=== PATIENT | male | born 1950 | race Caucasian/White ===

== ENCOUNTER 2021-12-05 10:40 | Outpatient (REF) | payer OTHER, SELFPAY ==
[2021-12-05 11:00] VITALS: BMI 25.8
[2021-12-05 11:03] VITALS: BP 127/82; PULSE 51; RESP 16; TEMP 36.6; O2SAT 98
== END 2021-12-05 10:41 | disposition home or self-care (01) ==
LOC: HO.MS 10:40
PROVIDERS: PCP Internal Medicine; Visit Provider Surgery
DX: L91.0 Hypertrophic scar (principal); Z53.8 Procedure and treatment not carried out for other reasons

== ENCOUNTER 2022-01-06 12:23 | Outpatient (REF) | payer OTHER, SELFPAY ==
[2022-01-06 12:36] VITALS: BP 127/55; PULSE 47; RESP 16; TEMP 36.6; O2SAT 98
[2022-01-06 12:39] VITALS: BMI 26.3
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
== END 2022-01-06 12:24 | disposition home or self-care (01) ==
LOC: HO.MS 12:23
PROVIDERS: Orthopaedic Surgery; PCP Internal Medicine; Visit Provider Surgery
PROC: (CPT 11602; principal; 2022-01-06 13:00)
DX: C43.59 Malignant melanoma of other part of trunk (principal); L91.0 Hypertrophic scar
CPT/HCPCS: 11602; 12031; 81210; 81272; 88304; 88341; 88342

== ENCOUNTER 2022-01-21 07:07 | Day surgery (SDC) | payer OTHER, SELFPAY ==
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
[2022-01-21] VITALS (7 sets, daily range): BP systolic 139–162; BP diastolic 63–93; PULSE 47–73; RESP 15–18; TEMP 36.1; O2SAT 95–100; BMI 25.9
--- NOTE | ~2022-01-21 | NM_ITS ---
EXAMINATION: NM LYMPH SCINTIGRAPHY CLINICAL INFORMATION: Left chest wall melanoma. COMPARISON: None TECHNIQUE: The patient was injected with 4 aliquots of 0.125 mCi technetium 99 M, labeled lymphoseek around the perimeter of the scar in the left anterior chest wall. Total body imaging at 1 hour was performed. Additional anterior COKER and PERSIAN images of the chest at 76 minutes was also performed. FINDINGS: There is adequate radiotracer activity seen at the scar in the left anterior chest wall. No sentinel node activity is seen. NM/NM sentinel node w imaging IMPRESSION: No sentinel node activity is seen.
[2022-01-21 08:33] LABS: Hematocrit 44.9 % (42.0-52.0); Hemoglobin 15.2 g/dl (14.0-18.0); Mean Corpuscular HGB Conc 33.9 g/dl (31.0-36.0); Mean Corpuscular Volume 91.6 fL (80.0-98.0); Mean Platelet Volume 10.8 fL (9.4-12.4); Platelet Count 226 X10*3/uL (160-400); White Blood Count 7.4 X10*3/uL (4.8-10.8)
[2022-01-21] MEDS: Lactated Ringers 1,000 ML 100 ML IVCONT (08:38)
[2022-01-21 08:40] LABS: Anion Gap 15 (12-20); Blood Urea Nitrogen 13 mg/dL (9-16); Carbon Dioxide 27 mmol/L (22-29); Chloride 103 mmol/L (96-108); Creatinine Clr Calc Pharmacy 85.2; Estimated Glomerular Filt Rate > 60; Glucose Fasting 97 mg/dL (60-99); Potassium 4.2 mmol/L (3.3-5.1); Sodium 141 mmol/L (135-145)
--- NOTE | 2022-01-21 08:52 | PC.NURSE ---
pt to radiology via stretcher off monitor, iv infusion of LR stopped/flushed site.
--- NOTE | 2022-01-21 12:53 | PC.NURSE ---
per dr. little upon signing consent, surgical clip to be done in OR
--- NOTE | 2022-01-21 14:23 | P.OP_ITS ---
Operative Note Operative Note Date of Service: 01/21/22 Narrative: Preoperative diagnosis: Malignant melanoma left chest Postoperative diagnosis: same Procedure: wide excision malignant melanoma left chest, left axillary sentinel node biopsy Surgeon: César Dinh MD Boulevard Glassware Replacer: Lo Peace PA-C, FAVIAN Breaux Anesthesia: general LMA Indications for procedure: 71-year-old male patient with a long history of bleeding skin lesion located over the left chest which is gradually increased in size. Patient previously underwent an excision of this lesion which proved to be a 5 mm deep invasive malignant melanoma with negative margins. Patient presents today for wide excision to achieve 2 cm margins. Operative findings: previous excision site with intact sutures with skin irritation in the surrounding skin Specimen: malignant melanoma left chest Estimated blood loss: 20 mL Complications: non Procedure details: patient was brought to the OR placed in a supine position. After administering general anesthesia the patient's left chest and axilla were prepped with Betadine and draped in a sterile fashion. A surgical time-out was called the consent confirmed. Patient received preoperative antibiotics and Venodyne boots were in place. Local anesthesia consisting of 0.25% bupivacaine was infiltrated circumferentially around the excision site. An elliptical incision was then created oriented transversely with 2 cm margins from the previous excision site. Then carried out through subcutaneous tissue down to muscle fascia. The lesion was then dissected off the muscle fascia. Specimen was marked with a long suture on the lateral margin and short suture on the superior margin. This was then passed off the table and sent to pathology for further examination. The skin edges were then mobilized over the muscle fascia both superiorly and inferiorly. Ingrid's fascia was then reapproximated using interrupted 3-0 Polysorb sutures. Dermis was then reapproximated using interrupted 3-0 Polysorb sutures. Skin was then closed using interrupted 3-0 nylon sutures. Attention was then directed to the axilla. The gamma probe was used to identify an area of increased a radio activity. A curvilinear incision was made below the hairline in the axilla transversely. This carried out through subcutaneous tissue past clavipectoral fascia. Using the gamma probe as a guide area of increased activity was localized and grasped with an Allis clamp. Enlarged lymph node was noted at that time. This was found to be amelanotic appearance. The node was removed using electrocautery. This was labeled as sentinel node 1 with a count of 66. A 2nd lymph node was then identified with counts of 76 sent as sentinel node 2. No other radio activity was identified at this time. Wounds were then checked for hemostasis. Hemostasis was assured using electrocautery. wounds were then irrigated with saline solution and suctioned dry. The fascia was reapproximated using interrupted 3-0 Polysorb sutures. Dermis was reapproximated using interrupted 3-0 Polysorb sutures. Skin was then closed using a running subcuticular 4-0 Polysorb suture Steri-Strips and Tegaderm were then applied. A Tegaderm dressing was also applied to the chest wound. The patient tolerated the procedure well. Sponge, instrument, and needle counts reported as correct. Patient was transferred as stable condition. Primary Cutaneous Melanoma Original Breslow thickness of the lesion: Invasive (to the tenth of a millimeter) (5.0) Clinical margin from the edge of the lesion or the prior excision scar: 2 cm Depth down to the fascia; if not down to the fascia, then document why: Yes General Surg. - Synoptic Notes Primary Cutaneous Melanoma Original Breslow thickness of the lesion: Invasive (to the tenth of a millimeter) (5.0) Clinical margin from the edge of the lesion or the prior excision scar: 2 cm Depth down to the fascia; if not down to the fascia, then document why: Yes
== END 2022-01-21 15:59 | disposition home or self-care (01) ==
PROVIDERS: Nurse Practitioner; PCP Internal Medicine; Visit Provider Surgery
PROC: (CPT 19120; principal; 2022-01-21 12:40)
PROC: (CPT 11602; 2022-01-21 12:40)
DX: C77.3 Secondary and unspecified malignant neoplasm of axilla and upper limb lymph nodes (principal); C43.59 Malignant melanoma of other part of trunk; Z86.74 Personal history of sudden cardiac arrest; I25.10 Atherosclerotic heart disease of native coronary artery without angina pectoris; Z79.82 Long term (current) use of aspirin; Z79.899 Other long term (current) drug therapy
CPT/HCPCS: 11602; 38525; 12031; 36415; 78195; 80048; 85027; 88305; 88307; 88341; 88342; A9520; J0131; J0461; J0690; J1100; J2250; J2405; J2795; J3010

== ENCOUNTER 2024-11-09 08:01 | Outpatient (AMB) | payer OTHER, SELFPAY ==
--- OUTSIDE RECORDS SUMMARY | 2024-11-09 08:06 | XMS_ITS | Encounter Summary ---
Author Organization [facility] Address [facility] [address] [place] [phone] Phone Care Team Providers Care Geothermal System Installer Name Role Phone Inder Arias MD Primary Care Provid er Christo Taylor MD Unavailable Angel Mondragon MD Unavailable Kayla Stahl MD, PhD Unavailable César Prabhakar MD Unavailable [phone] Encounter Details Date Type Department Care Team (Late st Contact Info) Description 11/24/2023 Procedure Pass [address] [place] [address] Social History Tobacco Use Types Packs/Day Years Used Date Smoking Tobacco: Never Passive Smoke Exposure: Past Smokeless Tobacco: Never Alcohol Use Standard Drinks/Week Comments Not Asked 0 (1 standard drink = 0.6 oz pur e alcohol) 1 per month Education Answer Date Recorded Are you interested in more education? Not on kalen e 07/20/2023 Are you concerned about learning? Not on file 07/20/2023 No 07/20/2023 No 07/20/2023 Digital Access Answer Date Recorded No 07/20/2023 No 07/20/2023 Reliable internet access at home? Not on file 07/20/2023 Device with a working camera? Not on file Intimate Partner Violence Answer Date R ecorded Are you denied basic needs s uch as food, clothing, or medical care? No 11/02/2023 In the past 12 months have y ou been in a relationship with a person who hurts, threatens, or tries to control you? No 11/02/2023 Are you denied basic needs s uch as food, clothing, or medical care? No 11/02/2023 In the past 12 months have y ou been in a relationship with a person who hurts, threatens, or tries to control you? No 11/02/2023 Sex and Gender Information Value Date Recorded Sex Assigned at Male 07/20/2023 11:37 AM EDT Legal Sex Male 11:35 AM EDT Gender Identity Male 07/20/2023 11:37 AM EDT Sexual Orientation Straight 07/20/2023 11 :37 AM EDT documented as of this encounter Plan of Treatment Not on file documented as of this encounter Goals Goal Patient Goal Type Associated Problems Recent Progress Patient-Stated? Author Acute Care Plan Acute Care Plan No Nanda Combs RN Note: Immune Effector Cell patient/ Tumor Infiltrating Leukocyte (TIL) patient. Patient received TIL product Lifileucel on 11/08/23 Page the on-call Immune Effector Cell Attending via [email or web address] Page immediately if patient presents within the first 30 days (12/09/23) of til infusion. DO NOT GIVE STEROIDS Please draw these labs for immediate results CBC with dif, comprehensive metabolic panel (CMP) , INR, PT, PTT, LDH, uric acid, C-Reactive Protein, ferritin, fibrinogen, Type and Screen 3. If febrile, obtain urine and blood cultures and chest X-ray. 4. Assess for the onset of new neurological symptoms. Additional workup per discretion of emergency team evaluation. Patients should be admitted to [place] [id number] to the Immune Effector Cell Service. documented as of this encounter Visit Diagnoses Not on filedocumented in this encounter Care Teams Geothermal System Installer Relationship Specialty Start Date End Date Inder Arias MD [address] [place] [id number] PCP - General Internal Medicine 07/20/23 Christo Taylor MD [address] [place] [id number] Interventional Cardiology 09/02/23 Angel Mondragon MD [address] [place] [id number] [email or web address] Hematology 08/12/23 Kayla Stahl MD, PhD [address] [place] [id number] [email or web address] [email or web address] Oncology 10/15/23 César Prabhakar MD [address] [facility] Hematology/[place] [address] [email or web address] Internal Medicine 09/22/24 documented as of this encounter Additional Source Comments The information contained in this document represents components of the legal health record. It is not the complete legal health record.[facility]
--- OUTSIDE RECORDS SUMMARY | 2024-11-09 08:07 | XMS_ITS | Clinical Summary ---
Author Organization [address] [place] [address] Address [address] [place] [address] Phone Care Team Providers Care Tool Supervisor Name Role Phone Unavailable Primary Care Provider Unavailabl e Allergies No known active allergies Medications acyclovir (ZOVIRAX) 400 mg tablet Take 1 Tablet by mouth 5 times daily. Active ALPRAZolam (XANAX) 0.25 mg tablet Take 1 Tablet by mouth 3 times daily as needed. Active apixaban (ELIQUIS) 5 mg tablet Take by mouth. Active aspirin (Vazalore) 81 mg capsule Take by mouth. Active atorvastatin (LIPITOR) 80 mg tablet Take 1 Tablet by mouth daily. Active atovaquone (MEPRON) 750 mg/5 mL suspension Take 5 mL by mouth daily. Active levETIRAcetam (KEPPRA) 500 mg tablet Take 1 Tablet by mouth 2 times daily. Active metoprolol succinate (TOPROL-XL) 25 mg 24 hr tablet Take 1 Tablet by mouth daily. Active Surgical History Surgery Date Site/Laterality Comments OTHER SURGICAL HISTORY PROCEDURE: HISTORICAL MELANOMA CARDIAC SURGERY PROCEDURE: HISTORICAL HEART SURGERY(ASD,VSD,VALVES) APPENDECTOMY PROCEDURE: CA APPENDECTOMY KNEE SURGERY Left PROCEDURE: HISTORICAL KNEE SURGERY Medical History Medical History Date Comments Heart attack (CMS/HCC V24, CMS/HCC V28) DX:Heart attack (HCC) Actinic keratosis DX:Actinic ker atosis SCCA (squamous cell carcinoma) of skin DX:SCCA (squamous cell carcinoma) of skin History of malignant melanoma DX :History of malignant melanoma Social History Tobacco Use Types Packs/Day Years Used Date Smoking Tobacco: Never Smokeless Tobacco: Never Sex and Gender Information Value Date Recorded Sex Assigned at Not on file Legal Sex Male 12:55 PM EST Gender Identity Not on file Sexual Orientation Not on file Obstetrics History Last Filed Vital Signs Vital Sign Reading Time Taken Comments Blood Pressure - - Pulse 66 02/01/2024 11:35 AM EDT Temperature - - Respiratory Rate - - Oxygen Saturation - - Inhaled Oxygen Concentration - - Weight 65.8 kg (145 lb) 02/01/2024 11:35 AM EDT Height 170.2 cm (5' 7 ) 02/01/2024 11:35 AM EDT Body Mass Index 22.71 02/01/2024 11:35 AM EDT Plan of Treatment Health Maintenance Due Date Last Done Comments COVID-19 Vaccine (#1) 1955 DTaP,Tdap,and Td Vaccines (1 - Tdap) 1970 Zoster Vaccines (1 of 2) 1970 Pneumococcal Vaccine: 50+ Ye ars (1 of 1 - PCV) 2001 Cholesterol Screening (Lipid Panel) 02/02/2024 Colorectal Cancer Screening: Colonoscopy 02/02/2024 Falls Risk Assessment 02/02/2024 Hepatitis C Screening 02/02/2024 Social Influencers of Health Screening 02/02/2024 Depression Screening 04/12/2024 Influenza Vaccine (#1) 2024 RSV Immunization Adult Patie nts (1 - 1-dose 75+ series) 2026 HIB Vaccines Aged Out No longer eligi ble based on patient's age to complete this topic HPV Vaccines Aged Out No longer eligi ble based on patient's age to complete this topic Hepatitis A Vaccines Aged Out No long er eligible based on patient's age to complete this topic Hepatitis B Vaccines Aged Out No long er eligible based on patient's age to complete this topic IPV Vaccines Aged Out No longer eligi ble based on patient's age to complete this topic MMR Vaccines Aged Out No longer eligi ble based on patient's age to complete this topic Meningococcal ACWY Vaccine Aged Out N o longer eligible based on patient's age to complete this topic Meningococcal B Vaccine Aged Out No l onger eligible based on patient's age to complete this topic RSV Immunization Patients Un anabella 20 months Aged Out No longer eligible b ased on patient's age to complete this topic Varicella Vaccines Aged Out No longer eligible based on patient's age to complete this topic
[2024-11-09 08:14] VITALS: BP 132/62; PULSE 63; O2SAT 97; BMI 23.3
--- NOTE | 2024-11-09 08:14 | MHC.PC.OV ---
Vital Signs 11/09/24 08:14 Height 5 ft 8 in Weight 153 lb BMI 23.3 BP 132/62 Blood Pressure Location Lt brachial Position Sitting Pulse 63 Pulse Source Pulse Oximeter Pulse Oximetry (%) 97 Oxygen Delivery Method Room Air Intake Visit Reasons: hurt his shoulder Allergies No Known Allergies Allergy (Verified 11/09/24 08:14) Medication List - Last Reconciled 11/09/24 by Apurva Barbour MD acyclovir 400 mg PO BID aspirin 81 mg PO DAILY atorvastatin 80 mg PO BEDTIME metoprolol succinate ER 25 mg PO DAILY Tobacco use date assessed: 11/09/24 Fall risk assessment: No Falls in past year Last assessed Fall Risk: 11/09/24 Dental Screening Dental Screen Date: 11/09/24 Did you have a dental visit in the last 12 months?: Yes Did you have a dental problem in the last 6 months where you did not have access to dental care?: No Was dental information given to patient?: Patient has dentist HPI hurt his shoulder HPI Details Dr. 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 1. Little interest or pleasure in doing things: not at all 2. Feeling down, depressed, or hopeless: not at all 3. Trouble falling or staying asleep, or sleeping too much: not at all 4. Feeling tired or having little energy: not at all 5. Poor appetite or overeating: not at all 6. Feeling bad about yourself - or that you are a failure or have let yourself or your family down: not at all 7. Trouble concentrating on things, such as reading the newspaper or watching television: not at all 8. Moving or speaking so slowly that other people could have noticed. Or the opposite - being so fidgety or restless that you have been moving around a lot more than usual: not at all 9. Thoughts that you would be better off or of hurting yourself in some way: not at all Total score: 0 Depression Screening Interpretation: Negative Depression Screening Done: Yes Source: Developed by Drs. Krzysztof Blackwood, Mary Tidwell, Fili Cortes and colleagues, with an educational maria elena from [employer]. Thrive Questionnaire Date Thrive assessed: 11/09/24 I am a: Patient What is your living situation today?: I have a steady place to live Within the past 12 months, did the food you bought not last and you didn't have the money to get more?: Never true Within the past 12 months, did you worry whether your food would run out before you got money to buy more?: Never true Do you have trouble paying for medicines?: No Do you have trouble getting transportation to medical appointments?: No Do you have trouble paying your heating and electricity bill?: No Do you have trouble taking care of your child, family member or friend?: No Do you have trouble with day-to-day activities such as bathing, preparing meals, shopping, managing finances, etc.?: No Are you currently unemployed and looking for a job?: No Are you interested in more education?: No Please select the resources that you would like help with: None Currently or been in a relationship where the following occur: No concerns reported THRIVE Score: 0 AUDIT C Alcohol Use Questionnaire (AUDIT-C) 1. How often do you have a drink containing alcohol?: Never 3. How often do you have six or more drinks on one occasion?: Never Total Score: 0 MICHEAL-7 AMB Questionnaire MICHEAL-7 Date MICHEAL - 7 assessed: 11/09/24 Feeling nervous, anxious, or on edge: 0 = Not at all Not being able to stop or control worryin = Not at all Worrying too much about different things: 0 = Not at all Trouble relaxin = Not at all Being so restless that it is hard to sit still: 0 = Not at all Becoming easily annoyed or irritable: 0 = Not at all Feeling afraid as if something awful might happen: 0 = Not at all Total MICHEAL-7 score (0-4 normal; 5-9 mild; 10-14 moderate; 15-21 severe): 0 Source: Developed by Drs. Krzysztof Blackwood, Mary Tidwell, Fili Cortes and colleagues, with an educational maria elena from [employer]. MICHEAL-7 Assessment Billing MICHEAL-7 Assessment Tool: MICHEAL-7 Assessment 94714 Physical exam (Primary Care) Vital Signs: Last Vital Signs Pulse 63 11/09/24 08:14 BP 132/62 11/09/24 08:14 Pulse Ox 97 11/09/24 08:14 Oxygen Delivery Method Room Air 11/09/24 08:14 BMI result Body Mass Index 23.3 Tobacco/Smoking Status: Tobacco use Status Tobacco use date assessed 11/09/24 11/09/24 08:22 Patient Tobacco Use Status Never used Tobacco 11/09/24 08:22 Tobacco use type Cigarette 11/09/24 08:22 e-Cigarette/Vaping Use Never Used 11/09/24 08:22 PHQ-9: PHQ-9 Score PHQ-9: Total score 0 11/09/24 08:47 Depression Screening Interpretation: Negative Thrive Assessment: Date of Thrive Assessment Date Thrive assessed 11/09/24 11/09/24 08:22 Currently or been in a relationship where the following occur: No concerns reported Const General: alert; No acute distress Eyes Conjunctivae: conjunctivae normal Chest Other: Noted fullness on the left clavicular area as well as limitation on elevation of the shoulder to about 15 degrees. No tenderness on the posterior shoulder notes slight tenderness on the lateral but there is tenderness on the anterior area there is an incisional scar on the left chest no redness there Resp Auscultation: clear to auscultation bilaterally Cardio Rate: regular rate Rhythm: regular rhythm GI Inspection: Yes normal to inspection Extrem General: Yes normal to inspection and No edema Coding Level of Care Code Est Pt Level 4 (14141) Complex EM visit Add On G2211 Diagnoses CAD (coronary artery disease) I25.10 Malignant melanoma of torso excluding breast C43.59 Melanoma location: torso excluding breast Hypercholesterolemia E78.00 Shoulder pain, left M25.512 Additional Codes MICHEAL-7 Assessment Billing - MICHEAL-7 Assessment Tool: MICHEAL-7 Assessment 69325 ([id number]) Assessment & Plan Assessment & Plan (1) CAD (coronary artery disease): Code(s): I25.10 - Atherosclerotic heart disease of [place] coronary artery without angina pectoris Category: Medical Plan: Control the cholesterol, weight, blood pressure, patient on aspirin and metoprolol (2) Malignant melanoma: Code(s): C43.9 - Malignant melanoma of skin, unspecified Category: Medical Qualifiers: Melanoma location: torso excluding breast Qualified Code(s): C43.59 - Malignant melanoma of other part of trunk Plan: Patient follows up with [facility] (3) Hypercholesterolemia: Code(s): E78.00 - Pure hypercholesterolemia, unspecified Category: Medical Plan: Avoid fried foods, chicken skin, eggs, butter margarine, pastries and meat. Be it pork or beef they have a lot of cholesterol patient needs blood work LDL goal of less than 70 and triglyceride of less than 150 (4) Shoulder pain, left: Code(s): M25.512 - Pain in left shoulder Category: Medical Plan History of Present Illness The patient is a 74-year-old male presenting with shoulder pain. The shoulder pain began approximately two months ago after exercising on a weight machine, specifically while doing butterflies, and was exacerbated by lifting light fixtures. The pain is associated with swelling and tenderness near the collarbone, with limited range of motion in the shoulder. The patient has a history of coronary artery disease and underwent coronary artery bypass grafting in 2017. He also has a history of atrial fibrillation and ventricular fibrillation arrest, for which he was previously on blood thinners but is no longer taking them. The patient has a significant oncological history, including malignant melanoma with pulmonary metastasis. He has been receiving immunotherapy, which led to pneumonitis, requiring hospitalization due to breathing difficulties. The melanoma initially started in the chest area, and he has undergone various treatments, including immunotherapy and the TILs program. The patient denies any history of lung problems such as asthma, stomach problems, ulcers, or thyroid issues. He does not consume alcohol or use tobacco products. Health Maintenance - Immunotherapy maintenance program for melanoma - Regular follow-up with hematology oncology - LDL cholesterol goal of less than 70 mg/dL, triglyceride goal of less than 150 mg/dL Social History - Exercise: Engages in weightlifting exercises - Substance Use: Denies alcohol and tobacco use Review of Systems - Musculoskeletal: Reports shoulder pain with limited range of motion and swelling - Respiratory: Denies dyspnea, cough, or wheezing - Gastrointestinal: Denies stomach problems or ulcers - Endocrine: Denies thyroid problems Physical Exam - Musculoskeletal: Noted fullness on the left clavicular area, limitation on elevation of the shoulder to about 15 degrees, tenderness on the anterior area of the shoulder - Respiratory: Lungs clear to auscultation bilaterally Results - Imaging: PET CT showing multiple progressive bilateral pulmonary metastasis - Imaging: Recent chest x-ray showed no acute findings Plan The plan for the patient's shoulder pain includes obtaining a shoulder x-ray to assess for any structural abnormalities. Pain management will be initiated with tramadol, starting at a low dose once daily with food, and can be increased to twice daily if needed. The patient is advised to apply heat to the affected area to promote healing and alleviate discomfort. For the management of hypercholesterolemia, the patient is to continue with atorvastatin and aim for an LDL cholesterol level of less than 70 mg/dL and triglycerides of less than 150 mg/dL. Regular follow-up with hematology oncology is recommended to monitor the progression of melanoma and adjust treatment as necessary. The patient will continue with the immunotherapy maintenance program and will be monitored for any adverse effects, particularly pneumonitis. Patient was informed and verbally consented to the use of an ambient scribe for clinic note documentation during this visit. Discussion Notes I discussed with the patient the plan to obtain a shoulder x-ray to evaluate the cause of his shoulder pain and the use of tramadol for pain management. We talked about the importance of applying heat to the shoulder to aid in recovery. I emphasized the need for regular follow-up with hematology oncology to monitor his melanoma and the continuation of his immunotherapy maintenance program. Patient Instructions - Take tramadol once daily with food, and increase to twice daily if needed for pain. - Apply heat to the shoulder to help with pain and healing. - Follow up with hematology oncology as scheduled. - Continue with atorvastatin and aim for LDL cholesterol less than 70 mg/dL. Orders: Orders XR shoulder LT min 2V Today M25.512 - Pain in left shoulder Medications: New levetiracetam (Keppra) 500 mg PO BID 60 tabs 0RF tramadol 50 mg PO BID PRN 14 tabs 2RF pain 7 days M17.9 - Osteoarthritis of knee, unspecified, M25.512 - Pain in left shoulder
== END 2024-11-09 09:29 | disposition home or self-care (01) ==
LOC: HO.HMCH 08:02
PROVIDERS: PCP Internal Medicine; Visit Provider Internal Medicine
DX: I25.10 Atherosclerotic heart disease of native coronary artery without angina pectoris (principal); C43.59 Malignant melanoma of other part of trunk; E78.00 Pure hypercholesterolemia, unspecified; M25.512 Pain in left shoulder

== ENCOUNTER 2024-11-09 08:01 | Outpatient (REF) | payer OTHER, SELFPAY ==
--- NOTE | ~2024-11-09 | XR_ITS ---
EXAMINATION: XR SHOULDER, LEFT CLINICAL INFORMATION: M25.512 - Pain in left shoulder COMPARISON: None available. TECHNIQUE: AP external rotation, Grashey, scapular Y, and axillary views of the left shoulder. FINDINGS: Normal bone mineralization. No fracture, dislocation, or suspicious bone lesion. Normal alignment. The glenohumeral joint demonstrates mild to moderate degenerative arthritis. There is undersurface osteophytic lipping of the glenoid. The AC joint demonstrates mild to moderate undersurface spurring. There is a type II acromion. No undersurface spurring. The subacromial space is preserved. Remainder of the soft tissue and bony structures appear normal. Median sternotomy noted with surgical clips in the mediastinum. XR/XR shoulder LT min 2V IMPRESSION: 1. No acute bony abnormalities left shoulder. 2. Mild to moderate osteoarthrosis of the glenohumeral joint. 3. Mild to moderate undersurface spurring of the AC joint. Electronically signed by: Benji Mejias MD 11/09/2024 10:16 AM EDT
== END 2024-11-09 08:02 | disposition home or self-care (01) ==
LOC: HO.XRAY 08:01
PROVIDERS: PCP Internal Medicine; Visit Provider Internal Medicine
DX: I25.10 Atherosclerotic heart disease of native coronary artery without angina pectoris (principal); C43.59 Malignant melanoma of other part of trunk; E78.00 Pure hypercholesterolemia, unspecified; M25.512 Pain in left shoulder; Z79.82 Long term (current) use of aspirin; Z79.899 Other long term (current) drug therapy; Z13.31 Encounter for screening for depression; Z13.39 Encounter for screening examination for other mental health and behavioral disorders
CPT/HCPCS: 73030; 96127

== ENCOUNTER → 2024-11-09 09:32 | Outpatient (BNV) | payer OTHER, SELFPAY | PROVIDERS: PCP Internal Medicine; Visit Provider Radiology Diagnostic Radiology | DX: M19.012 Primary osteoarthritis, left shoulder (principal) | CPT/HCPCS: 73030 ==